=== PATIENT | female | born 1985 | race Hispanic/Latino ===

== ENCOUNTER 2024-02-17 18:20 | Emergency (ER) | payer BC ==
--- OUTSIDE RECORDS SUMMARY | 2024-02-17 18:23 | XMS REPORT | Continuity of Care Document ---
Author Name Unknown Address [address] [facility] [address] [place] [address] [facility] thconnect Address [address] [facility] 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 Name Role Phone Adán Mitchell MD Primary Care Physician + [phone] ACE WALL Attending Clinician Unavailable MD PACO Attending Clinician Unavailab inna GC_GCBZW_Deepak_S Attending Clinician Unavaila JILLIAN Busby Attending Clinician Unavailab le LAB90 Attending Clinician Unavailable LYNETTE TRINIDAD Attending Clinician MAYURI Cabrera Attending Clinician Unavailable Ace Alba Attending Clinician [phone] RANDOLPH Attending Clinician Unavailab SUYAPA Gilliland Attending Clinician Unavailable Adán Mitchell MD Attending Clinician + [phone] GERALDINE STEINER Attending Clinician Unavailable Doctor Unassigned, [place] Attending Clinician U Kojo Velásquez MD Attending Clinician [phone] KOJO HAGEN Attending Clinician Unavailable DUNCAN RUDOLPH Attending Clinician Unavailable Duncan Rudolph MD Attending Clinician [phone] ADÁN MITCHELL Attending Clinician Unavaila ble Lab, Ang - Db Attending Clinician Unavailable GARRY CUTLER Attending Clinician Unavailable Garry Cutler MD Attending Clinician [phone] Lab, Adc Fam Pob I Attending Clinician Unavailab ISIAH Alfaro Attending Clinician Unavailable LEXUS POPE Attending Clinician Unavailable RAJEEV LEVI Attending Clinician Unavailjoby e NO PHYSICIAN, . Attending Clinician Unavailable ZEB ESPINOZA Attending Clinician Unavailable JAS ELKINS Attending Clinician Unavailable LALY MCGOVERN Attending Clinician Unajoya ailable GC_GCBZW_Kadiyala_S Admitting Clinician Unavaila ble LA_GARY Admitting Clinician Unavailab DUNCAN Voss Admitting Clinician Unavailable ADÁN MITCHELL Admitting Clinician Unavaila ble RAJEEV LEVI Admitting Clinician Unavailabl e Payers Payer Name Policy Type Policy Number Effective Date Expirati on Date Source [facility] 2 [id number] 2021 00:00:00 Problems Condition Name Condition Details Condition Category Status Onset Date Resolution Date Last Treatment Date Treating Clinician Comments Source Prediabete s Prediabete s Disease Active 08-10 00:00: 00 Tami Seybold - Externa l Hypertrigl yceridemia Hypertrigl yceridemia Disease Active 08-10 00:00: 00 Tami Seybold - Externa l Low HDL (under 40) Low HDL (under 40) Disease Active 08-10 00:00: 00 Tami Seybold - Externa l Hyperlipid emia Hyperlipid emia Disease Active 08-10 00:00: 00 Tami Seybold - Externa l BMI 30.0-30.9, adult BMI 30.0-30.9, adult Disease Active 08-09 00:00: 00 Tami Seybold - Externa l Depression with anxiety Depression with anxiety Disease Active 08-09 00:00: 00 Tami Seybold - Externa l Vitamin D deficiency Vitamin D deficiency Disease Active 08-09 00:00: 00 Tami Seybold - Externa l B12 deficiency (suboptima l level of <400) B12 deficiency (suboptima l level of <400) Disease Active 2020-03 2-24 00:00: 00 [facility] Fatty liver Fatty liver Disease Active 2020-03 00:00: 00 [facility] Choledocha l cyst Choledocha l cyst Disease Active 2020-03 00:00: 00 [facility] Choledocha l cyst Choledocha l cyst Disease Active 2020-03 00:00: 00 [facility] Abnormal LFTs Abnormal LFTs Disease Active 2020-03 0 00:00: 00 [facility] History of insomnia History of insomnia Disease Active 2020-03 00:00: 00 [facility] Hypotensio n Hypotensio n Disease Active 2020-03 00:00: 00 [facility] Mixed dyslipidem ia Mixed dyslipidem ia Disease Active 09-27 00:00: 00 [facility] Vitamin D deficiency Vitamin D deficiency Disease Active 09-27 00:00: 00 [facility] Adjustment disorder with mixed anxiety and depressed mood Adjustment disorder with mixed anxiety and depressed mood Disease Active 08-20 00:00: 00 [facility] Marital maladjustm ent involving divorce Marital maladjustm ent involving divorce Disease Active 08-20 00:00: 00 [facility] Intramural leiomyoma of uterus Intramural leiomyoma of uterus Disease Active 2012-03 0 00:00: 00 [facility] Allergies, Adverse Reactions, Alerts Allergy Name Allergy Type Status Severity Reaction(s) Onset Date Inactive Date Treating Clinician Comments Source NO KNOWN ALLERGIE S Drug Class Active [facility] Social History Social Habit Start Date Stop Date Quantity Comments Source Gender identity 2022-07-22 07:20:40 Identifies as female gender (finding) Tami Castellanos - External Sexual orientation [facility] Tobacco use and exposure 2021-08-09 00:00:00 2021-08-09 00:00:00 Smokeless tobacco non-user Tami Castellanos - External Exposure to SARS-CoV-2 (event) 2021-03-08 00:00:00 2021-04-07 06:41:00 Not sure [facility] Alcohol intake 2021-04-02 00:00:00 2021-04-02 00:00:00 Current non-drinker of alcohol (finding) [facility] History of Social function 2020-08-10 00:00:00 2020-08-10 00:00:00 [facility] Sex Assigned At 1985 00:00:00 1985 00:00:00 F Tami Castellanos - External Smoking Status Start Date Stop Date Source Never smoked tobacco Tami Castellanos - External Medications Ordered Medication Name Filled Medication Name Start Date Stop Date Current Medication? Ordering Clinician Indication Dosage Frequency Signature (SIG) Comments Components Source Diethylprop ion HCl CR 75 MG oral TABLET SR 24 HR 08-14 00:00: 00 Yes [id number] 1{tbl} Take 1 tablet by mouth daily Tami burris Famotidine (Pepcid) 20 MG oral tablet 08-14 00:00: 00 Yes [id number] 20mg Take 1 tablet (20 mg total) by mouth 2 times daily Tami burris Cetirizine HCl (ZyrTEC Allergy) 10 MG oral TABLET DISPERSIBLE 08-14 00:00: 00 Yes [id number] 1{tbl} Take 1 tablet by mouth daily Tami burris Selenium Sulfide 2.5 % apply externally Lotion 08-14 00:00: 00 Yes [id number] QD Apply 1 applicatio n. topically daily as needed for itching Tami burris Triamcinolo ne Acetonide 0.1 % apply externally Cream 08-14 00:00: 00 09-12 04:59 :00 No [id number] Apply to area twice daily for 10 days Tami burris Brexpiprazo le (Rexulti) 0.5 MG oral Tablet 07-09 00:00: 00 Yes [id number] Tami burris Clonazepam 0.5 MG oral Tablet 07-09 00:00: 00 Yes [id number] Tami burris Duloxetine HCl (Cymbalta) [address] Particles 5- 00:00: 00 Yes [id number] Tami burris Zolpidem Tartrate 10 MG oral Tablet 5- 00:00: 00 08-14 00:00 :00 No TAKE 1/2 TO 1 TABLET ORALLY DAILY AT BEDTIME Tami burris Promethazin e HCl 12.5 MG oral Tablet - 00:00: 00 Yes TAKE 1-2 TABLET BY MOUTH NEEDED EVERY 6 HRS 30 DAY(S) Tami burris levoFLOXaci n 750 MG oral Tablet - 00:00: 00 08-14 00:00 :00 No TAKE 1 TABLET BY MOUTH EVERY DAY FOR 14 DAYS Tami burris Dicyclomine HCl 20 MG oral Tablet - 00:00: 00 08-14 00:00 :00 No 20mg Take 1 tablet (20 mg total) by mouth 4 times daily Tami burris Ondansetron HCl 4 MG oral Tablet - 00:00: 00 08-14 00:00 :00 No 4mg Take 1 tablet (4 mg total) by mouth every 12 hours as needed Tami burris Ozempic, 2 MG/DOSE, subcutaneou s 3-29 00:00: 00 Yes [id number] INJECT 2MG SUBCUTANEO USLY EVERY WEEK. Tami burris busPIRone HCl 15 MG oral Tablet 2-13 00:00: 00 Yes [id number] TAKE 0.5-1 TABLETS BY MOUTH 2 (TWO) TIMES DAILY NEEDED (ANXIETY). Tami burris Oseltamivir Phosphate 75 MG oral Capsule 1-12 00:00: 00 03-27 05:59 :00 No [id number] 75mg Take 1 capsule (75 mg total) by mouth 2 times daily for 5 days Tami burris busPIRone HCl 15 MG oral Tablet 2021-03- 00:00: 00 Yes [id number] TAKE 0.5-1 TABLETS BY MOUTH 2 (TWO) TIMES DAILY NEEDED (ANXIETY). Tami burris Ondansetron (Zofran ODT) 4 MG oral TABLET DISPERSIBLE 2021-03 00:00: 00 Yes [id number] 4mg [id number] 3D Take 1 tablet (4 mg total) by mouth every 8 hours as needed for nausea Tami burris Semaglutide (2 mg/dose) 8 mg/3 mL SQ Solution Pen-Injecto r 2021-03 00:00: 00 Yes [id number] 2mg Inject 2 mg into the skin once a week Tami burris Bupropion HCL XL 300 MG OR TB24 12-06 00:00: 00 Yes [id number] 300mg Take 1 tablet (300 mg total) by mouth daily Tami burris Vortioxetin e HBr (Trintellix ) 10 MG oral Tablet 12-06 00:00: 00 Yes [id number] 1{tbl} Take 1 tablet by mouth daily Tami burris Semaglutide (2 mg/dose) 8 mg/3 mL SQ Solution Pen-Injecto r 12-06 00:00: 00 12-06 00:00 :00 No [id number] 2mg Inject 2 mg into the skin once a week Tami burris Bupropion HCL XL 300 MG OR TB24 11-29 00:00: 00 12-06 00:00 :00 No [id number] TAKE 1 TABLET BY MOUTH EVERY DAY Tami burris busPIRone HCl 15 MG oral Tablet 11-06 00:00: 00 Yes [id number] TAKE 0.5-1 TABLETS BY MOUTH 2 (TWO) TIMES DAILY NEEDED (ANXIETY). Tami burris OZEMPIC (1 mg/dose) 4 mg/3 mL SQ Solution Pen-Injecto r 11-05 00:00: 00 Yes [id number] 1mg Inject 1 mg into the skin once a week Tami Castellanos - Irenaa l Phentermine HCl 37.5 MG oral Tablet 10-08 00:00: 00 12-06 00:00 :00 No [id number] 37.5mg Take 1 tablet (37.5 mg total) by mouth every morning (before breakfast) Tami Castellanos - Irenaa l Phentermine HCl 37.5 MG oral Tablet 08-09 00:00: 00 Yes [id number] 37.5mg Take 1 tablet (37.5 mg total) by mouth every morning (before breakfast) Tami Castellanos busPIRone HCl 15 MG oral Tablet 08-09 00:00: 00 Yes [id number] TAKE 0.5-1 TABLETS BY MOUTH 2 (TWO) TIMES DAILY NEEDED (ANXIETY). Tami Castellanos Bupropion HCL XL 150 MG OR TB24 08-09 00:00: 00 Yes [id number] 150mg Take 1 tablet (150 mg total) by mouth every morning Tami Castellanos Vortioxetin e HBr (Trintellix ) 10 MG oral Tablet 08-09 00:00: 00 Yes [id number] 1{tbl} Take 1 tablet by mouth daily Tami Castellanos Bupropion HCL XL 150 MG OR TB24 06-07 00:00: 00 08-09 00:00 :00 No 150mg Take 150 mg by mouth every morning Tami Castellanos busPIRone HCl 15 MG oral Tablet 06-07 00:00: 00 08-09 00:00 :00 No TAKE 0.5-1 TABLETS BY MOUTH 2 (TWO) TIMES DAILY NEEDED (ANXIETY). Tami Castellanos Trintellix 10 MG oral Tablet 3- 00:00: 00 08-09 00:00 :00 No 1{tbl} Take 1 tablet by mouth daily Tami Castellanos vitamin B-12 (VITAMIN B-12) 500 mcg tablet 2020-03 2-24 00:00: 00 Yes [id number] 500ug Take 1 tablet by mouth daily. [facility] 8 mg tablet 2020-03 00:00: 00 Yes [id number] TAKE 1 TABLET BY MOUTH EVERY DAY AT BEDTIME NEEDED FOR INSOMNIA [facility] vortioxetin e (TRINTELLIX ) 10 mg Tab 2020-03 00:00: 00 Yes [id number] 1{tbl} Take 1 tablet by mouth daily. [facility] buPROPion XL (WELLBUTRIN XL) 150 mg 24 hr tablet 2020-03 00:00: 00 06-07 00:00 :00 No [id number] 150mg Take 1 tablet by mouth every morning. [facility] ergocalcife rol, vitamin d2, 1,250 mcg (50,000 unit) capsule 09-27 00:00: 00 Yes [id number] 60221Q Take 1 capsule by mouth weekly. [facility] busPIRone 15 mg tablet 09-25 00:00: 00 06-07 00:00 :00 No [id number] 7.5mg Take 0.5-1 tablets by mouth 2 (two) times daily as needed (anxiety). [facility] Alprazolam 0.5 MG oral Tablet 2019-03 00:00: 00 Yes Tmai Ovalles l Immunizations Ordered Immunization Name Filled Immunization Name Date Status Comments Source Influenza Virus Vaccine, age 6 months and up 2021-12-06 00:00:00 Completed Tami Neves Influenza Virus Vaccine, age 6 months and up 2021-12-06 00:00:00 Flavia Sneior External Influenza Virus Vaccine, age 6 months and up 2021-12-06 00:00:00 Completed Tami Neves Influenza Virus Vaccine, age 6 months and up 2021-12-06 00:00:00 Flavia MARTINEZ 2013-05-08 00:00:00 Completed [facility] TDAP 2013-05-08 00:00:00 Completed [facility] TDAP 2013-05-08 00:00:00 Completed [facility] TDAP 2013-05-08 00:00:00 Completed [facility] TDAP 2013-05-08 00:00:00 Completed [facility] Tdap- (Boostrix, Adacel) 2013-05-08 00:00:00 Completed Tami Seybold - External Tdap- (Boostrix, Adacel) 2013-05-08 00:00:00 Completed Tami Seybold - External Tdap- (Boostrix, Adacel) 2013-05-08 00:00:00 Completed Tami Seybold - External Tdap- (Boostrix, Adacel) 2013-05-08 00:00:00 Completed Tami Wilsonybold - External Influenza Virus Vaccine (3+ yrs) 2012-12-09 00:00:00 Completed [facility] Influenza Virus Vaccine (3+ yrs) 2012-12-09 00:00:00 Completed [facility] Influenza Virus Vaccine (3+ yrs) 2012-12-09 00:00:00 Completed [facility] Influenza Virus Vaccine (3+ yrs) 2012-12-09 00:00:00 Completed [facility] Influenza Virus Vaccine (3+ yrs) 2012-12-09 00:00:00 Completed [facility] Influenza, Seasonal, Injectable 2012-12-09 00:00:00 Completed Tami Seybold - External Influenza, Seasonal, Injectable 2012-12-09 00:00:00 Completed Tami Seybold - External Influenza, Seasonal, Injectable 2012-12-09 00:00:00 Completed Tami Seybold - External Influenza, Seasonal, Injectable 2012-12-09 00:00:00 Completed Tami Seybold - External Tb Screen 2005-10-23 00:00:00 Completed Tami Seybold - External Tb Screen 2005-10-23 00:00:00 Completed Tami Seybold - External Tb Screen 2005-10-23 00:00:00 Completed Tami Seybold - External Tb Screen 2005-10-23 00:00:00 Completed Tami Wilsonybold - External Influenza Virus Vaccine (3+ yrs) Unknown Completed [facility] TDAP Unknown Completed [facility] Vital Signs Vital Name Observation Time Observation Value Comments S ource Systolic blood pressure 2022-08-14 21:15:00 106 mm[Hg] Tami Sierra ld - External Diastolic blood pressure 2022-08-14 21:15:00 62 mm[Hg] Tami Seybo ld - External Heart rate 2022-08-14 21:15:00 101 /min Kelse y Seybold - External Body temperature 2022-08-14 21:15:00 37.17 Shima Tami Seybold - External Body height 2022-08-14 21:15:00 147.3 cm Trudi ey Seybold - External Body weight 2022-08-14 21:15:00 64.864 kg Trudi ey Seybold - External BMI 2022-08-14 21:15:00 29.89 kg/m2 Trudi ey Seybold - External Systolic blood pressure 2021-12-06 13:08:00 110 mm[Hg] Tami Seybo ld - External Diastolic blood pressure 2021-12-06 13:08:00 73 mm[Hg] Tami ybo ld - External Heart rate 2021-12-06 13:08:00 87 /min Kelse y Seybold - External Body temperature 2021-12-06 13:08:00 36.72 Shima Tami Seybold - External Respiratory rate 2021-12-06 13:08:00 14 /min Tami Seybold - External Body height 2021-12-06 13:08:00 147.3 cm Trudi ey Seybold - External Body weight 2021-12-06 13:08:00 63.504 kg Trudi ey Seybold - External BMI 2021-12-06 13:08:00 29.26 kg/m2 Trudi ey Seybold - External Oxygen saturation in Arterial blood by Pulse oximetry 2021-12-06 13:08:00 99 /min Tami Seybo ld - External Heart rate 2021-08-09 18:42:00 80 /min Kelse y Seybold Body temperature 2021-08-09 18:42:00 37.17 Shima Tami Seybold Respiratory rate 2021-08-09 18:42:00 15 /min Tami Seybold Body height 2021-08-09 18:42:00 147.3 cm Trudi ey Seybold Body weight 2021-08-09 18:42:00 66.316 kg Trudi ey Seybold BMI 2021-08-09 18:42:00 30.56 kg/m2 Trudi Castellanos Systolic blood pressure 2021-04-02 14:28:00 111 mm[Hg] [facility] Diastolic blood pressure 2021-04-02 14:28:00 72 mm[Hg] [facility] Heart rate 2021-04-02 14:28:00 86 /min [facility] Body temperature 2021-04-02 14:28:00 36.89 Shima [facility] Respiratory rate 2021-04-02 14:28:00 18 /min [facility] Body height 2021-04-02 14:28:00 147.3 cm [facility] Body weight 2021-04-02 14:28:00 63.912 kg [facility] BMI 2021-04-02 14:28:00 29.45 kg/m2 [facility] Encounters Start Date/Time End Date/Time Encounter Type Admission Type Attending [facility] Care Department Encounter ID Source 2024-03-25 15:30:00 2024-03-25 15:30:00 Outpatient ACE WALL [id number] Tami Castellanos 2023-10-13 00:00:00 2023-10-13 00:00:00 Outpatient ACE WALL [id number] Tami Castellanos 2023-08-28 00:00:00 2023-08-28 00:00:00 Outpatient ACE WALL [id number] Tami Castellanos 2023-07-06 00:00:00 2023-07-06 00:00:00 Outpatient ACE WALL [id number] Tami Castellanos 2023-06-27 00:00:00 2023-06-27 00:00:00 Outpatient ACE WALL [id number] Tami Castellanos 2023-04-27 00:00:00 2023-04-27 00:00:00 Outpatient ACE WALL [id number] Tami Wilsonybdelilah 2023-01-31 00:00:00 2023-01-31 00:00:00 Outpatient ACE WALL [id number] [facility] 2023-01-12 00:00:00 2023-01-12 00:00:00 Outpatient MAE, ACE GUAMAN [id number] [facility] 2023-01-10 00:00:00 2023-01-10 00:00:00 Outpatient MAE, ACE GUAMAN [id number] [facility] 2023-01-10 00:00:00 2023-01-10 00:00:00 Outpatient MD [id number] [facility] 00:00:00 2023-01-01 00:00:00 Outpatient ACE WALL [id number] [facility] 2022-11-19 00:00:00 2022-11-19 00:00:00 Outpatient GC_GCBZW_Ka diyala_S [facility] [id number] [facility] 2022-11-13 00:00:00 2022-11-13 00:00:00 Outpatient HUNDL, ACE GUAMAN [id number] [facility] 2022-10-17 00:00:00 2022-10-17 00:00:00 Outpatient JILLIAN HAMPTON [id number] [facility] 2022-09-27 00:00:00 2022-09-27 00:00:00 Outpatient MAE, ACE GUAMAN [id number] [facility] 2022-09-24 00:00:00 2022-09-24 00:00:00 Outpatient HUNDL, ACE GUAMAN [id number] [facility] 2022-09-13 00:00:00 2022-09-13 00:00:00 Outpatient ACE WALL [id number] [facility] 2022-09-12 00:00:00 2022-09-12 00:00:00 Outpatient ACE WALL [id number] [facility] 2022-09-05 00:00:00 2022-09-05 00:00:00 Outpatient ACE WALL [id number] Tami Emanuel 2022-08-21 00:00:00 2022-08-21 00:00:00 Outpatient PIYUSHRod ACE GUAMAN [id number] Tami Emanuel 2022-08-14 17:15:00 2022-08-14 17:15:00 Outpatient ALEXA TAMI GUAMAN [id number] Tami ybdelilah 2022-08-14 16:30:00 2022-08-14 16:30:00 Outpatient MAE ACE GUAMAN [id number] Tami ybdelilah 2022-08-14 00:00:00 2022-08-14 00:00:00 Outpatient MD TAMI KIRK [id number] T[facility] E[facility] 2022-07-24 10:00:00 2022-07-24 10:00:00 Outpatient JILLIAN HAMPTON [id number] Tami Emanuel 2022-07-24 00:00:00 2022-07-24 00:00:00 Outpatient JILLIAN HAMPTON [id number] Tami ybdelilah 2022-07-24 00:00:00 2022-07-24 00:00:00 Outpatient LYNETTE TRINIDAD [id number] [facility]-04 00:00:00 2022-06-04 00:00:00 Outpatient ACE WALL [id number] Tami ybdelilah 2022-04-21 00:00:00 2022-04-21 00:00:00 Outpatient MAE ACE GUAMAN [id number] Tami Seybdelilah 2022-03-21 10:30:00 2022-03-21 10:30:00 Outpatient MAYURI BROWN [id number] Tami Castellanos 2022-01-03 08:00:00 2022-01-03 08:00:00 Outpatient ACE WALL [id number] Tami Castellanos 2022-01-01 00:00:00 2022-01-01 00:00:00 Outpatient [facility] W[facility] [id number] [facility] 2021-12-06 08:00:00 2021-12-06 08:00:00 Outpatient ACE WALL TAMI GUAMAN [id number] [facility] 2021-11-05 08:00:00 2021-11-05 08:30:00 Office Visit Ace Wall [id number] 350.1.13.13 [id number] [id number] [facility] 2021-10-08 08:00:00 2021-10-08 08:30:00 Office Visit Ace Wall [id number] 350.1.13.13 [id number] [id number] [facility] 2021-10-05 08:30:00 2021-10-05 08:30:00 Outpatient MAE ACE GUAMAN [id number] [facility] 2021-09-19 11:12:00 2021-09-19 11:12:00 Outpatient DICLEMENTE_ [facility] [id number] [facility] 2021-09-06 15:30:00 2021-09-06 16:00:00 Office Visit MaeAce Jackson [id number] 350.1.13.13 [id number] [id number] [facility] 2021-08-10 00:00:00 2021-08-10 00:00:00 Outpatient SUYAPA MAHARAJ [id number] [facility] 2021-08-10 00:00:00 2021-08-10 00:00:00 Outpatient ACE WALL [id number] Tami Castellanos 2021-08-09 14:15:00 2021-08-09 14:15:00 Outpatient LAB90 TAMI GUAMAN [id number] [facility] 2021-08-09 13:30:00 2021-08-09 14:00:00 Office Visit Hundl, Ace Le [id number] 350.1.13.13 [id number] [id number] Tami Castellanos 2021-08-09 09:00:00 2021-08-09 09:00:00 Outpatient ACE WALL TAMI GUAMAN [id number] Tami Castellanos 2021-08-08 09:00:00 2021-08-08 09:00:00 Outpatient ACE WALL TAMI GUAMAN [id number] [facility] 2021-08-07 00:00:00 2021-08-07 00:00:00 Outpatient MD TAMI KIRK [id number] [facility] 2021-07-14 00:00:00 2021-07-14 00:00:00 Refill Stephen, Wondiful A [facility] [place] [facility] [id number] 350.1.13.10 4.2.7.2.686 [id number] [facility] 2021-07-10 00:00:00 2021-07-10 00:00:00 Refill Stephen, Wondiful A [facility] 1.284.114 350.1.13.10 4.2.7.2.686 [id number] [facility] 2021-06-27 00:00:00 2021-06-27 00:00:00 Refill Potter, Wondiful A [facility] [place] 1.840.114 350.1.13.10 4.2.7.2.686 [id number] [facility] 2021-06-07 00:00:00 2021-06-07 00:00:00 Refill Potter, Wondiful A [facility] [id number] 350.1.13.10 4.2.7.2.686 [id number] [facility] 2021-04-09 15:30:00 2021-04-09 15:30:00 Outpatient R GERALDINE STEINER [facility] [id number] [facility] 2021-04-03 00:00:00 2021-04-03 00:00:00 Patient Secure Msg Doctor Unassigned, [place] [facility] 1.840.114 350.1.13.10 4.2.7.2.686 [id number] [facility] 2021-04-02 08:15:00 2021-04-02 08:48:55 Office Visit Kojo Hagen [facility] 1.840.114 350.1.13.10 4.2.7.2.686 [id number] [facility] 2021-04-02 08:15:00 2021-04-02 08:48:55 Outpatient R KOJO HAGEN [facility] [id number] [facility] 2021-04-02 08:15:00 2021-04-02 08:15:00 Outpatient R KOJO HAGEN [facility] [id number] [facility] 2021-03-09 13:00:00 2021-03-09 23:59:00 Outpatient R DUNCAN RUDOLPH [facility] [id number] [facility] 2021-03-02 00:00:00 2021-03-02 00:00:00 Case Management Adán Mitchell A [facility] 1..840.114 350.1.13.10 4.2.7.2.686 [id number] [facility] 2021-02-26 08:00:00 2021-02-26 08:38:53 Outpatient R DUNCAN RUDOLPH [facility] [id number] [facility] 2021-02-26 08:00:00 2021-02-26 08:38:53 Office Visit Duncan Rudolph [facility] 1..840.114 350.1.13.10 4.2.7.2.686 [id number] [facility] 2021-02-26 08:00:00 2021-02-26 08:38:53 Outpatient R DUNCAN RUDOLPH [facility] [id number] [facility] 2021-02-19 11:30:00 2021-02-19 12:14:38 Outpatient R STEPHENADÁN BRUCE [facility] [id number] [facility] 2021-02-19 11:30:00 2021-02-19 12:14:38 Outpatient R STEPHENADÁN BRUCE [facility] [id number] [facility] 2021-02-19 11:24:24 2021-02-19 11:39:24 Ball Holder [facility] 1..840.114 350.1.13.10 4.2.7.2.686 [id number] [facility] 2021-02-19 10:53:53 2021-02-19 11:24:47 Office Visit Stephen Adán Nur [facility] 1..840.114 350.1.13.10 4.2.7.2.686 [id number] [facility] 2021-02-19 11:00:00 2021-02-19 11:00:00 Outpatient R STEPHEN MARIANELAEVONMANDA [facility] [id number] [facility] 2021-01-30 00:00:00 2021-01-30 00:00:00 Refill Stephen Marianelaevonmanda Nur [facility] HOSPITAL OFFICE BUILDING ONE 1..840.114 350.1.13.10 4.2.7.2.686 [id number] [facility] 2021-01-25 00:00:00 2021-01-25 00:00:00 Case Management Adán Mitchell [facility] MEDICAL OFF[facility] BUILDING 1.84.114 350.1.13.10 4.2.7.2.686 [id number] [facility] 2021-01-22 08:50:51 2021-01-22 23:59:00 Outpatient R ADÁN MITCHELL [facility] [id number] [facility] 2021-01-22 08:50:51 2021-01-22 23:59:00 Hospital Encounter Adán Mitchell [facility] 1.84.114 350.1.13.10 4.2.7.2.686 [id number] [facility] 2021-01-18 09:00:00 2021-01-18 09:00:00 [facility] [id number] [facility] 2020-12-28 00:00:00 2020-12-28 00:00:00 Case Management Adán Mitchell [facility] Medical Office Building 1.84.114 350.1.13.10 4.2.7.2.686 [id number] [facility] 2020-12-25 15:10:45 2020-12-25 16:40:[address] [facility] 1.84.114 350.1.13.10 4.2.7.2.686 [id number] [facility] 2020-12-25 09:26:06 2020-12-25 09:41:06 Ball Holder Visit Lab, Ang - Db Adán Mitchell [facility] Medical Office Building 1.84.114 350.1.13.10 4.2.7.2.686 [id number] [facility] 2020-12-25 08:47:05 2020-12-25 09:26:17 Office Visit Adán Mitchell [facility] Building 1.840.114 350.1.13.10 4.2.7.2.686 [id number] [facility] 2020-12-25 08:45:00 2020-12-25 08:45:00 Outpatient R ADÁN MITCHELL [facility] [id number] [facility] 2020-10-05 00:00:00 2020-10-05 00:00:00 Refill Adán Mitchell [facility] Office Building One 1..114 350.1.13.10 4.2.7.2.686 [id number] [facility] 2020-09-27 00:00:00 2020-09-27 00:00:00 Case Management Adán Mitchell [facility] Office Building One 1..114 350.1.13.10 4.2.7.2.686 [id number] [facility] 2020-09-25 13:33:54 2020-09-25 13:53:54 Ball Holder Visit Lab, Adc Fam Pob I Adán Mitchell [facility] Office Building One 1..114 350.1.13.10 4.2.7.2.686 [id number] [facility] 2020-09-25 13:02:54 2020-09-25 13:33:36 Office Visit Adán Mitchell [facility] Office Building One 1..114 350.1.13.10 4.2.7.2.686 [id number] [facility] 2020-09-25 13:00:00 2020-09-25 13:00:00 Outpatient R ADÁN MITCHELL [facility] [id number] [facility] 2020-09-01 00:00:00 2020-09-01 00:00:00 Refill Adán Mitchell [facility] Office Building One 1..840.114 350.1.13.10 4.2.7.2.686 [id number] [facility] 2020-08-27 00:00:00 2020-08-27 00:00:00 Refill Adán Mitchell [facility] Office Building One 1..840.114 350.1.13.10 4.2.7.2.686 [id number] [facility] 2020-08-10 14:19:19 2020-08-10 15:10:56 Office Visit Adán Mitchell [facility] Office Building One 1.840.114 350.1.13.10 4.2.7.2.686 [id number] [facility] 2020-08-10 14:30:00 2020-08-10 14:30:00 Outpatient R ADÁN MITCHELL [facility] [id number] [facility] 2020-08-10 00:00:00 2020-08-10 00:00:00 Orders Only Doctor Unassigned, [place] [facility] 1.840.114 350.1.13.10 4.2.7.2.686 [id number] [facility] 2012-10-20 12:05:00 2012-10-20 14:15:00 Emergency ER ISIAH ONTIVEROS [facility] [id number] [facility] 2012-08-05 13:05:00 2012-08-05 22:54:00 Emergency ER LEXUS POPE [facility] [id number] [facility] 2004-07-07 05:04:00 2004-07-09 17:30:00 Inpatient RAJEEV LEAL [facility] [id number] [facility] 2004-04-24 19:17:00 2004-04-24 21:35:00 Inpatient ER RAJEEV LEVI [facility] [id number] [facility] 2002-08-19 04:57:00 2002-08-21 13:20:00 Inpatient RAJEEV LEAL [facility] [id number] [facility] 2002-08-20 16:54:00 2002-08-20 16:54:00 Outpatient KALPANA TARIQ, . [facility] [id number] [facility] 2002-06-10 13:48:00 2002-06-11 09:15:00 Inpatient RAJEEV LEAL [facility] [id number] [facility] 2000-05-20 10:35:00 2000-05-20 10:35:00 Outpatient ZEB CHANDLER [facility] [id number] [facility] 1999-12-05 14:46:00 1999-12-05 14:46:00 Outpatient JAS DUNHAM [facility] [id number] [facility] 1999-11-19 12:14:00 1999-11-19 12:14:00 Outpatient EL LALY MARTIN [facility] [id number] [facility]
--- NOTE | 2024-02-17 20:02 | RAD REPORT ---
EXAMINATION: ONE VIEW CHEST XR CLINICAL INDICATION: CHEST PAIN TECHNIQUE: Frontal chest projection is submitted. Examination is limited by patient positioning and t echnique. COMPARISON: 10/22/2016 FINDINGS: The lungs are well inflated and clear. The heart is normal in size. No displaced fractures identified . IMPRESSION: No acute intrathoracic abnormalities.
[2024-02-17 21:12] LABS: Absolute Eosinophils 0.2 K/uL (0-0.5); Absolute Lymphocytes (CBC) 1.9 K/uL (0.7-4.9); Absolute Monocytes 0.5 K/uL (0.1-1.3); Absolute Neutrophil 9.4 K/uL (1.8-8.0); Basophils % 0.4 % (0-1.3); Eosinophils % 1.6 % (0-4.4); Hematocrit 45.1 % (36.0-45.0); Hemoglobin 15.2 g/dL (12.0-15.0); Lymphocytes % 15.4 % (15.3-44.8); MCH 30.1 pg (27.0-35.0); MCHC 33.8 g/dL (32.0-36.0); MPV 8.1 fL (7.6-11.3); Monocytes % 4.4 % (3.3-12.3); Neutrophils % 78.2 % (41.7-73.7); Platelets 276 thou/uL (152-406); RBC Red Blood Cell Count 5.07 M/uL (3.86-4.86); Red Cell Distribution Width 14.6 % (12.1-15.2)
[2024-02-17 21:33] LABS: D-Dimer 0.303 FEUug/mL (0-0.500); PT Prothrombin Time 11.4 SECONDS (9.4-12.5); Protime INR 1.02
[2024-02-17 21:35] LABS: ALT/SGPT 119 U/L (13-56); AST/SGOT 60 U/L (15-37); Albumin 3.9 g/dL (3.4-5.0); Alkaline Phosphatase 83 U/L (45-117); Anion Gap 8.5 mEq/L (5.0-15.0); BUN Blood Urea Nitrogen 17 mg/dL (7-18); Bicarbonate 29 mEq/L (21-32); Bilirubin Total 0.4 mg/dL (0.2-1.0); Glomerular Filtration Rate 73 ml/min (=/>90); Glucose Level 156 mg/dL (74-106); Magnesium 2.2 mg/dL (1.6-2.4); Potassium 3.5 mEq/L (3.5-5.1); Protein, Total 7.9 g/dL (6.4-8.2); Sodium Level 135 mEq/L (136-145)
[2024-02-17 21:36] LABS: Bilirubin Direct < 0.2 mg/dL (0-0.2); Bilirubin Indirect, Calculated 0.2 mg/dL (0.2-0.8); NT PRO-BNP < 5 pg/mL (<125); Troponin High Sensitivity < 3.0 pg/mL (<58.9)
[2024-02-17] MEDS ORDERED: NA CHLORIDE 0.9% 1,000 ML ONE (21:39)
[2024-02-17 21:50] LABS: Band Neutrophils 2 % (0-1); Blood Morphology Comment NOT SEEN (NOT SEEN); Differential Total Cells Count 100; Eosinophils 1 % (0-3); Lymphocytes 12 % (15-42); Monocytes 3 % (0-10); Platelet Estimate ADEQ; Segmented Neutrophils 82 % (40-80)
--- NOTE | 2024-02-17 21:54 | RAD REPORT ---
EXAM: Extremity Nonvascular Complete HISTORY: breast pain/swelling COMPARISON: None TECHNIQUE: Sonographic grayscale and color flow imaging of the left upper chest wall including the re gion of interest as described by the patient. FINDINGS: No abnormal mass, fluid collection or cyst is seen in the region. Yearly screening mammography would be recommended commencing at age 40.
--- NOTE | 2024-02-17 22:30 | RAD REPORT ---
EXAM: CT CHEST, ABDOMEN WITH CONTRAST CLINICAL INDICATION: chest pain, elevated lft TECHNIQUE: CT chest, abdomen was performed, following the administration of contrast, as per [facility] protocol. Axial, sagittal and coronal reconstructions were obtained. One or more of the following dose reduction techniques were used: Automated exposure control, adjustment of the mA and/o r kV according to patient size, and/or iterative reconstruction. Unless otherwise specified, incidental findings do not require dedicated imaging follow-up. COMPARISON: No prior exam. FINDINGS: LUNGS: No evidence of airspace or interstitial process. No nodules. PLEURA: No pleural effusion. No pneumothorax. MEDIASTINUM AND LYMPH NODES: No mediastinal mass or fluid collection. Normal size mediastinal, hilar, and axillary lymph nodes. OSSEOUS STRUCTURES AND CHEST WALL: Intact. LIVER: Moderate fatty liver. Cholecystectomy clips. PANCREAS: No mass, ductal dilation, or ирина-pancreatic fluid. SPLEEN: Normal size. No focal lesion. ADRENALS: Normal; no mass. KIDNEYS: Normal size and contour. No hydronephrosis. GASTROINTESTINAL TRACT: No bowel obstruction, free air, significant free fluid or abscess. LYMPH NODES: No lymphadenopathy. MUSCULOSKELETAL: No acute or suspicious osseous abnormality. OTHER: IMPRESSION: Moderate fatty liver. Otherwise, negative study.
--- NOTE | 2024-02-17 22:39 | ER ---
Nurse's Notes [facility] Name: Mar Nieto Age: 38 yrs Sex: Female : 1985 Arrival Date: 02/17/2024 Time: 18:20 Bed 20 Private MD: Diagnosis: Chest wall pain/breast pain- left Presentation: 02/16 19:00 Chief complaint: Patient states: PAIN TO LEFT BREAST. PT REPORTS THAT THE PAIN RADIATES cm10 TO HER RIGHT UNDERARM. PT DESCRIBES THE PAIN A SHARP HEAVY PAIN. PT ALSO REPORTS NAUSEA. Coronavirus screen: Client denies travel out of the [place] in the last 14 days. Ebola Screen: Patient denies travel to an Ebola-affected area in the 21 days before illness onset. No symptoms or risks identified at this time. Initial Sepsis Screen: Does the patient meet any 2 criteria? HR > 90 bpm. Does the patient have a suspected source of infection? No. Patient's initial sepsis screen is negative. Risk Assessment: Do you want to hurt yourself or someone else? Patient reports no desire to harm self or others. Onset of symptoms was February 17, 2024. 19:00 Method Of Arrival: Ambulatory cm10 19:00 Acuity: RUDDY 3 cm10 Triage Assessment: 19:02 General: Appears in no apparent distress. comfortable, Behavior is calm, cooperative. cm10 Pain: Complains of pain in left breast Pain radiates to left axilla Pain currently is 3 out of 10 on a pain scale. at worst was 8 out of 10 on a pain scale. Quality of pain is described as heavy, sharp, Pain began suddenly. Neuro: No deficits noted. Level of Consciousness is awake, alert, obeys commands, Oriented to person, place, time, situation, Appropriate for age. Respiratory: No deficits noted. Airway is patent Respiratory effort is even, unlabored, Respiratory pattern is regular, symmetrical. 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 - Infectious Disease History:: Denies. - Social history:: Smoking status: Patient denies any tobacco usage or history of. Screenin:00 [facility] ED Fall Risk Assessment (Adult) History of falling in the last 3 months, kj2 including since admission No falls in past 3 months (0 pts) Confusion or Disorientation No (0 pts) Intoxicated or Sedated No (0 pts) Impaired Gait No (0 pts) Mobility Assist Device Used No (0 pt) Altered Elimination No (0 pt) Score/Fall Risk Level 0 - 2 = Low Risk Maintained a safe environment, Hourly rounding (assess needs \T\ fall precautionary measures) done. Abuse screen: Denies threats or abuse. Denies injuries from another. Nutritional screening: No deficits noted. Tuberculosis screening: No symptoms or risk factors identified. Assessment: 21:00 General: Appears in no apparent distress. comfortable, Behavior is calm, cooperative. kj2 Pain: Complains of pain in left arm and left axilla and chest and left breast Pain currently is 5 out of 10 on a pain scale. Neuro: Level of Consciousness is awake, alert, obeys commands, Oriented to person, place, time, situation. Cardiovascular: Patient's skin is warm and dry. Respiratory: Airway is patent Respiratory effort is unlabored. GI: No signs and/or symptoms were reported involving the gastrointestinal system. : No signs and/or symptoms were reported regarding the genitourinary system. 21:46 Reassessment: Patient appears in no apparent distress at this time. Patient and/or kj2 family updated on plan of care and expected duration. Pain level reassessed. Patient is alert, oriented x 3, equal unlabored respirations, skin warm/dry/pink. 22:29 Reassessment: Patient appears in no apparent distress at this time. Patient and/or kj2 family updated on plan of care and expected duration. Pain level reassessed. Patient is alert, oriented x 3, equal unlabored respirations, skin warm/dry/pink. 22:40 Reassessment: Patient appears in no apparent distress at this time. Patient and/or kj2 family updated on plan of care and expected duration. Pain level reassessed. Patient is alert, oriented x 3, equal unlabored respirations, skin warm/dry/pink. Vital Signs: 19:00 BP 132 / 88; Pulse 116; Resp 18; Temp 97.8; Pulse Ox 95% on R/A; Weight 74.84 kg; cm10 Height 4 ft. 10 in. ; Pain 3/10; 21:00 BP 101 / 53; Pulse 104; Resp 18; Temp 98; Pulse Ox 99% on R/A; Weight 74.84 kg; Height kj2 4 ft. 10 in. ; 21:46 BP 110 / 58; Pulse 102; Resp 20; Pulse Ox 100% on R/A; kj2 22:28 BP 109 / 69; Pulse 105; Resp 20; Pulse Ox 99% ; kj2 23:02 BP 112 / 70; Pulse 102; Resp 20; Temp 98; Pulse Ox 100% ; kj2 21:00 Body Mass Index 34.48 (74.84 kg, 147.32 cm) kj2 19:00 Pain Scale: Adult cm10 ED Course: 18:22 Patient arrived in ED. ra3 18:30 Ana Carrillo PA-C is PHCP. sb4 18:30 Iggy Gutierrez MD is Attending Physician. sb4 19:02 Triage completed. cm10 19:03 Arm band placed on right wrist. Patient placed in waiting room. cm10 19:53 XRAY Chest (1 view) In Process Unspecified. EDMS 21:00 Patient has correct armband on for positive identification. Bed in low position. Call kj2 light in reach. Side rails up X 1. Adult w/ patient. Provided Education on: call light. 21:27 Leonarda Forbes, RN is Primary Nurse. kj2 21:31 No provider procedures requiring assistance completed. kj2 21:50 Extremity Nonvascular Complete In Process Unspecified. EDMS 22:15 CT Chest Abdomen W/ Contrast In Process Unspecified. EDMS 23:02 IV discontinued, intact, bleeding controlled, No redness/swelling at site. Pressure kj2 dressing applied. Administered Medications: 21:45 Drug: NS 0.9% IV 1000 ml IV at 1000 ml once; to be given as a bolus over 60 minutes kj2 Route: IV; Rate: 1000 ml; Site: right antecubital; 22:45 Follow up: IV Status: Completed infusion; IV Intake: 1000ml kj2 22:48 Drug: Ketorolac IVP 15 mg IVP once Route: IVP; Site: right antecubital; kj2 23:02 Follow up: Response: No adverse reaction; Pain is decreased kj2 Medication: 21:30 VIS not applicable for this client. kj2 Intake: 22:45 IV: 1000ml; Total: 1000ml. kj2 Outcome: 22:39 Discharge ordered by . sb4 22:41 Discharged to home ambulatory, with family, kj2 22:41 Condition: stable 22:41 Discharge instructions given to patient, family, Instructed on discharge instructions, follow up and referral plans. Demonstrated understanding of instructions, follow-up care, 23:07 Patient left the ED. kj2 Signatures: Dispatcher [employer] Ana Poon PA-C PA-C [email or web address] Alysa Perkins, RN RN cm10 Nati Arenas ra3 Leonarda Forbes, RN RN kj2
--- NOTE | 2024-02-17 22:39 | EDPHYS ---
Physician Documentation [facility] Name: Mar Nieto Age: 38 yrs Sex: Female : 1985 Arrival Date: 02/17/2024 Time: 18:20 Bed 20 Private MD: ED Physician Iggy Gutierrez HPI: 02/16 23:18 This 38 yrs old Female presents to ER via Ambulatory with complaints of Breast sb4 Problem - left breast to side pain. 23:18 left breast pain that began this evening. no alleviating or aggravating factors. denies sb4 any sob, dizziness, fever, chills. denies any recent illnesses. has not noticed any swelling, warmth, or redness in the breast. denies any fevers. 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 - Infectious Disease History:: Denies. - Social history:: Smoking status: Patient denies any tobacco usage or history of. ROS: 23:18 Constitutional: Negative for fever, chills, and weight loss, sb4 23:18 MS/extremity: Positive for pain, of the left arm and left axilla and left breast, 23:18 All other systems are negative, Exam: 23:18 Constitutional: This is a well developed, well nourished patient who is awake, alert, sb4 and in no acute distress. Head/Face: Normocephalic, atraumatic. Eyes: Extra-ocular motions intact. Periorbital areas with no swelling, redness, or edema. ENT: Mucous membranes moist. Chest/axilla: Normal chest wall appearance and motion. Nontender with no deformity. No lesions are appreciated. Cardiovascular: Regular rate and rhythm with a normal S1 and S2. Respiratory: No increased work of breathing, no retractions or nasal flaring. Skin: Warm, dry with normal turgor. Normal color with no rashes, no lesions, and no evidence of cellulitis. 23:18 Chest/axilla: Inspection: normal, no acute changes, Breasts: are normal, no acute changes, cellulitis, is not appreciated, mass(es), absent, rash, is not appreciated, swelling, is not appreciated, tenderness, is not appreciated, Vital Signs: 19:00 BP 132 / 88; Pulse 116; Resp 18; Temp 97.8; Pulse Ox 95% on R/A; Weight 74.84 kg; cm10 Height 4 ft. 10 in. ; Pain 3/10; 21:00 BP 101 / 53; Pulse 104; Resp 18; Temp 98; Pulse Ox 99% on R/A; Weight 74.84 kg; Height kj2 4 ft. 10 in. ; 21:46 BP 110 / 58; Pulse 102; Resp 20; Pulse Ox 100% on R/A; kj2 22:28 BP 109 / 69; Pulse 105; Resp 20; Pulse Ox 99% ; kj2 23:02 BP 112 / 70; Pulse 102; Resp 20; Temp 98; Pulse Ox 100% ; kj2 21:00 Body Mass Index 34.48 (74.84 kg, 147.32 cm) kj2 19:00 Pain Scale: Adult cm10 MDM: 19:05 Medical Screening Exam initiated sb4 23:19 Data reviewed: vital signs, nurses notes, lab test result(s), EKG, radiologic studies, sb4 and as a result, I will discharge patient. Counseling: I had a detailed discussion with the patient and/or guardian regarding the historical points, exam findings, and any diagnostic results supporting the discharge/admit diagnosis, lab results, radiology results, the need for outpatient follow up, for definitive care, to return to the emergency department if symptoms worsen or persist or if there are any questions or concerns that arise at home. 02/16 19:05 Order name: Basic Metabolic Panel; Complete Time: 21:37 sb4 02/16 19:05 Order name: CBC with Diff; Complete Time: 21:55 sb4 02/16 19:05 Order name: D-Dimer; Complete Time: 21:35 sb4 02/16 19:05 Order name: LFT's; Complete Time: 21:37 sb4 02/16 19:05 Order name: Magnesium; Complete Time: 21:37 sb4 02/16 19:05 Order name: NT PRO-BNP; Complete Time: 21:37 sb4 02/16 19:05 Order name: PT-INR; Complete Time: 21:35 sb4 02/16 19:05 Order name: Troponin HS; Complete Time: 21:37 sb4 02/16 21:23 Order name: Manual Differential; Complete Time: 21:55 EDMS 02/16 19:05 Order name: XRAY Chest (1 view); Complete Time: 20:02 sb4 02/16 21:37 Order name: CT Chest Abdomen W/ Contrast; Complete Time: 22:32 sb4 02/16 21:46 Order name: Extremity Nonvascular Complete; Complete Time: 21:55 EDMS 02/16 19:05 Order name: EKG; Complete Time: 19:06 sb4 02/16 19:05 Order name: Cardiac monitoring sb4 02/16 19:05 Order name: EKG - Nurse/Tech; Complete Time: 22:28 sb4 02/16 19:05 Order name: IV Saline Lock sb4 02/16 19:05 Order name: Labs collected and sent sb4 02/16 19:05 Order name: O2 Per Protocol sb4 02/16 19:05 Order name: O2 Sat Monitoring sb4 02/16 19:07 Order name: Gown patient sb4 EC:27 Rate is 108 beats/min. Rhythm is regular, Sinus tachycardia. MA interval is normal at sb4 144 msec. QRS interval is normal at 84 msec. QT interval is normal at 340 msec. No Q waves. T waves are Normal. No ST changes noted. Clinical impression: No evidence of ischemia. Interpreted by me. Reviewed by me. Administered Medications: 21:45 Drug: NS 0.9% IV 1000 ml IV at 1000 ml once; to be given as a bolus over 60 minutes kj2 Route: IV; Rate: 1000 ml; Site: right antecubital; 22:45 Follow up: IV Status: Completed infusion; IV Intake: 1000ml kj2 22:48 Drug: Ketorolac IVP 15 mg IVP once Route: IVP; Site: right antecubital; kj2 23:02 Follow up: Response: No adverse reaction; Pain is decreased kj2 Disposition Summary: 02/17/24 22:39 Discharge Ordered Notes: Location: Home sb4 Problem: new sb4 Symptoms: have improved sb4 Condition: Stable sb4 Diagnosis - Chest wall pain/breast pain- left sb4 Followup: sb4 - With: Private Physician - When: As needed - Reason: Recheck today's complaints, Re-evaluation by your physician Discharge Instructions: - Discharge Summary Sheet sb4 - Musculoskeletal Pain sb4 - Chest Wall Pain, Ctyo-dg-[id number] sb4 Forms: - Patient Portal Instructions sb4 - Leadership Thank You Letter sb4 Prescriptions: - gabapentin 100 mg Oral capsule - take 1 capsule ORAL route 2 times per day; 10 capsule; Refills: 0, Product sb4 Selection Permitted - ketorolac 10 mg Oral tablet - take 1 tablet ORAL route every 6 hours for 3 days as needed for pain; 12 sb4 tablet; Refills: 0, Product Selection Permitted Signatures: Dispatcher [employer] Ana Poon PA-C PA-C sb4 Alysa Perkins, RN RN cm10 Leonarda Forbes RN RN kj2 Corrections: (The following items were deleted from the chart) 21:46 21:26 Extrmty Nonvasular Limited+US.RAD.BRZ ordered. EDMS EDMS
[2024-02-17] MEDS ORDERED: KETOROLAC 30 MG/ML INJ ONE (22:46)
[2024-02-17 23:16] VITALS: TEMP 98
[2024-02-17 23:21] VITALS: BP 112/70; O2SAT 100
--- NOTE | 2024-02-20 15:54 | EKG ---
Test Date: 2024-02-17 Test Time: 22:23:56 Interactive Media Director: KATIE MEASUREMENT RESULTS: Intervals: Rate: 108 OK: 144 QRSD: 84 QT: 340 QTc: 455 Harvest: P: 61 OK: 144 QRS: 83 T: 15 INTERPRETIVE STATEMENTS: Sinus tachycardia Nonspecific T wave abnormality Abnormal ECG No previous ECG available for comparison Electronically Signed On 02-20-24 15:49:52 SERGEANT [employer] by Adam Garham
== END 2024-02-17 23:07 | disposition home or self-care (01) ==
LOC: ER 18:20
DX: R07.89 Other chest pain (principal); N64.4 Mastodynia; F41.9 Anxiety disorder, unspecified; E11.9 Type 2 diabetes mellitus without complications
CPT/HCPCS: 96361; 93005; 85025; 80048; 36415; 83735; 85610; 85379; 80076; 84484; 83880; 74160; 71260; 71045; 76881; 96374; 99284; Q9967; J7030